=== PATIENT | male | born 1970 | race Caucasian/White ===

== ENCOUNTER 2017-04-14 13:52 | Inpatient (IN) | payer OTHER ==
[~2017-04-14] VITALS: Ht 182.9 cm; Wt 85.0 kg
[~2017-04-14 13:52] MED LIST: CLON-365 PO; OXYC-509 PO; RIZA10TA22 PO
[2017-04-14] MEDS ORDERED: ONDANSETRON 2MG/ML, 2ML ONE ×2 (14:26→16:19)
[2017-04-14] MEDS ORDERED: HYDROmorphone 1 MG/ML, 1ML ONE ×4 (14:26→18:09)
[2017-04-14] MEDS ORDERED: ONDANSETRON 2MG/ML, 2ML IVPush ONE (14:30)
[2017-04-14] MEDS ORDERED: SODIUM CHLORIDE FLUSH 10ML SYR IVF ONE (14:30)
[2017-04-14] MEDS: HYDROmorphone 1 MG/ML, 1ML IVPush PRN ×2 (14:39→15:27)
[2017-04-14] MEDS ORDERED: KETOROLAC 30 MG/1 ML ONE (14:55)
[2017-04-14] MEDS ORDERED: TAMS-11 PO ×2 (15:00→15:01)
[2017-04-14] MEDS ORDERED: KETOROLAC 30 MG/1 ML IVPush ONE (15:00)
[2017-04-14] MEDS ORDERED: IBUP800T PO (15:00)
[2017-04-14 15:29] LABS: BLOOD UREA NITROGEN 9 mg/dL (7-18)
[2017-04-14] MEDS ORDERED: SODIUM CHLORIDE FLUSH 10ML SYR IVF PRN (15:30)
[2017-04-14] MEDS ORDERED: ONDANSETRON 2MG/ML, 2ML IVPush PRN ×3 (15:30→16:30)
[2017-04-14] MEDS ORDERED: HYDROmorphone 1 MG/ML, 1ML IVPush PRN (15:30)
[2017-04-14] MEDS ORDERED: SODIUM CHLORIDE 0.9% 1,000 ML IV SCH (15:47)
[2017-04-14 15:51] LABS: PATH.CAST-FLAG NOT PRESENT; SPERM-FLAG NOT PRESENT; SRC-FLAG NOT PRESENT; XTAL-FLAG NOT PRESENT; YLC-FLAG NOT PRESENT
[2017-04-14] MEDS ORDERED: BISACODYL 10 MG SUPP PR PRN (16:00)
[2017-04-14] MEDS ORDERED: morphine SULFATE 10 MG/ML, 1ML IVPush PRN (16:00)
[2017-04-14] MEDS ORDERED: ACETAMINOPHEN 325 MG TABLET PO PRN ×2 (16:00→16:30)
[2017-04-14] MEDS ORDERED: ONDANSETRON ODT 4 MG PO PRN (16:00)
[2017-04-14] MEDS ORDERED: POLYETHYLENE GLYCOL 17 GM PACKET PO PRN (16:00)
[2017-04-14] MEDS ORDERED: hydrALAzine 20 MG/ML, 1ML IVPush PRN (16:00)
[2017-04-14] MEDS ORDERED: OxyconTIN ER 15 MG TAB.ER PO SCH (16:00)
[2017-04-14] MEDS ORDERED: DOCUSATE 100 MG CAPSULE PO PRN (16:00)
[2017-04-14] MEDS ORDERED: HYDROmorphone 2 MG/ML, 1ML ONE (16:13)
[2017-04-14] MEDS ORDERED: CEFAZOLIN 1,000 MG ONE (16:19)
[2017-04-14] MEDS ORDERED: PROPOFOL 10 MG/ML, 20ML ONE (16:19)
[2017-04-14] MEDS ORDERED: DEXAMETHASONE 4 MG/ML, 1ML ONE (16:19)
[2017-04-14 16:29] LABS: DAU SCREEN DISCLAIMER
[2017-04-14] MEDS ORDERED: hydrALAzine 20 MG/ML, 1ML IV PRN (16:30)
[2017-04-14] MEDS ORDERED: ALBUTEROL SULFATE 2.5 MG/3 ML NPPB PRN (16:30)
[2017-04-14] MEDS ORDERED: LABETALOL 5MG/ML, 20ML IV PRN (16:30)
[2017-04-14] MEDS ORDERED: MEPERIDINE/PF 25MG/0.5ML IVPush PRN (16:30)
[2017-04-14] MEDS ORDERED: OXYcodone 5 MG/5 ML ORAL.SOL UDC PO PRN (16:30)
[2017-04-14] MEDS ORDERED: METOPROLOL 1 MG/ML, 5ML IV PRN (16:30)
[2017-04-14] MEDS ORDERED: EPHEDRINE 50 MG/ML, 1ML IVPush PRN (16:30)
[2017-04-14] MEDS ORDERED: MEPERIDINE/PF 25MG/0.5ML ONE (17:32)
[2017-04-14] MEDS ORDERED: FENTANYL PF 100 MCG/2ML ONE (17:32)
[2017-04-14] MEDS ORDERED: OXYcodone 5 MG/5 ML ORAL.SOL UDC ONE (17:33)
[2017-04-14] MEDS: FENTANYL PF 100 MCG/2ML IV PRN ×2 (17:47→18:01)
[2017-04-14] MEDS: HYDROmorphone 1 MG/ML, 1ML IV PRN ×2 (18:10→18:17)
[2017-04-14] MEDS ORDERED: NICOTINE 14MG/24 HR PATCH.TD24 TD SCH (18:30)
[2017-04-14 19:16] VITALS: BP 143/85
[2017-04-14] MEDS ORDERED: PHEN-418 PO (19:22)
[2017-04-14] MEDS ORDERED: HYDR-883 PO (19:24)
[2017-04-14] MEDS ORDERED: TAMSULOSIN 0.4 MG CAP.ER.24H PO ONE (20:00)
[2017-04-15] MEDS ORDERED: TAMSULOSIN 0.4 MG CAP.ER.24H PO SCH (09:00)
== END 2017-04-14 21:02 | disposition home or self-care (01) | DRG 669 ==
LOC: OR 15:00 → EDIP 15:02 → OR 15:18 → 4NOR 18:34
PROC: 0T778DZ Dilation of Left Ureter with Intraluminal Device, Via Natural or Artificial Opening Endoscopic (ICD-10-PCS; 2017-04-14)
PROC: 0TC78ZZ Extirpation of Matter from Left Ureter, Via Natural or Artificial Opening Endoscopic (ICD-10-PCS; principal; 2017-04-14 14:30)
DX: N13.2 Hydronephrosis with renal and ureteral calculous obstruction (principal); F41.9 Anxiety disorder, unspecified; G89.29 Other chronic pain; F17.210 Nicotine dependence, cigarettes, uncomplicated; Z82.5 Family history of asthma and other chronic lower respiratory diseases; Z82.49 Family history of ischemic heart disease and other diseases of the circulatory system
CPT/HCPCS: 36415; 80048; 80307; 81001; 82040; 82360; 85025; 87077; 87086; 87186; 88300; 96374; 96375; 96376; J0690; J1100; J1170; J1885; J2175; J2405; J2704; J3010; C1758; C1769; C2617